=== PATIENT | male | born 1950 | race Caucasian/White ===

== ENCOUNTER 2017-03-30 11:49 | Inpatient (IN) | payer MEDICARE, OTHER ==
--- NOTE | 2017-03-30 12:22 | ED.PDOC ---
History of Present Illness - General Chief Complaint: Neuro Symptoms/Deficits Stated Complaint: altered mental status Time Seen by Provider: 03/30/17 12:22 Source: patient Exam Limitations: no limitations - History of Present Illness Initial Comments: Bc Reyna 66 y/o male brought by family today they stated that felt nauseated the last 3 days and woke up early thia sm at 0500h telling that he was dying screaming but calmed down went back to bed and woke up about 1100 h then was telling that he saw grandson and seeing red all over ,had also vomited several times yesterday and had diarrhea today.No LOC not eating well the last few days . stated they sleep in separate bedroo. Timing/Duration: 4-6 hours, other Severity: moderate Episode Description: see hpi Improving Factors: nothing Worsening Factors: nothing Associated Symptoms: confusion, other - hallucination Allergies/Adverse Reactions: Allergies NO KNOWN ALLERGY Allergy (Verified 03/30/17 12:11) Home Medications: Ambulatory Orders Alprazolam [Xanax] 2 mg PO BEDTIME 03/30/17 Citalopram Hydrobromide 20 mg PO DAILY 03/30/17 Cyclobenzaprine HCl [Flexeril] 10 mg PO Q12H PRN 03/30/17 HYDROcodone 10MG/APAP 325MG [[place] 10/325] 1 tab PO Q6H PRN 03/30/17 Pantoprazole Sodium [Protonix] 20 mg PO DAILY 03/30/17 Simvastatin 80 mg PO BEDTIME 03/30/17 Trazodone HCl 150 mg PO BEDTIME 03/30/17 Review of Systems - Review of Systems Constitutional: States: no symptoms reported EENTM: States: no symptoms reported Respiratory: States: no symptoms reported Cardiology: States: no symptoms reported Gastrointestinal/Abdominal: States: no symptoms reported Genitourinary: States: no symptoms reported Musculoskeletal: States: no symptoms reported Skin: States: no symptoms reported Neurological: States: see HPI Past Medical History (General) - Patient Medical History Hx Cardiac Disorders: Yes - ID x2, stent x4 Surgical History: other - back lower,shoulder - Vaccination History Hx Influenza Vaccination: No - Social History Hx Tobacco Use: Yes Hx Alcohol Use: No Hx Substance Use: No Hx Substance Use Treatment: No Hx Depression: No Family Medical History - Family History Mother Family History: Unknown Hx Family Hypertension: Yes - dad/brother Hx Cardiac Disease: Yes - dad/brother Physical Exam - Physical Exam General Appearance: Alert, Comfortable, No apparent distress Eye Exam: bilateral normal ENT Exam: normal ENT inspection, hearing grossly normal, pharynx normal Neck: non-tender, full range of motion, supple, trachea midline, other - carotid bruits right.>left Respiratory: chest non-tender, lungs clear, normal breath sounds, no respiratory distress Cardiovascular/Chest: normal peripheral pulses, regular rate, rhythm, no gallop , no JVD, no murmur Peripheral Pulses: radial,right: 2+, radial,left: 2+ Gastrointestinal/Abdominal: normal bowel sounds, non tender, soft, no organomegaly Back Exam: no CVA tenderness, no vertebral tenderness Extremities Exam: non-tender, normal range of motion, no edema 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, 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 Exam: normal hearing, normal speech, PERRL Coordination/Gait: normal finger to nose Motor/Sensory: no motor deficit, no sensory deficit, no pronator drift Skin Exam: normal color, warm/dry Progress - Progress Progress: 03/30/17 14:17 Laboratory Tests 03/30/17 03/30/17 03/30/17 12:38 12:38 12:38 WBC 8.8 RBC 4.21 L Hgb 13.9 L Hct 39.9 L MCV 94.7 H MCH 33.0 H MCHC 35.0 RDW 12.6 Plt Count 191 MPV 7.3 L Absolute Neuts (auto) 6.20 Absolute Lymphs (auto) 2.00 Absolute Monos (auto) 0.60 Absolute Eos (auto) 0.00 Absolute Basos (auto) 0.00 Neutrophils % 70.4 Lymphocytes % 22.3 Monocytes % 7.1 Eosinophils % 0.1 L Basophils % 0.1 Sodium 127 L Potassium 4.3 Chloride 94 L Carbon Dioxide 25 Anion Gap 12.3 BUN 12 Creatinine 0.76 BUN/Creatinine Ratio 15.8 Random Glucose 131 H Serum Osmolality 256.8 L Calcium 9.9 Magnesium 1.7 L Total Bilirubin 0.8 AST 25 ALT 18 Alkaline Phosphatase 54 Troponin I Serum Total Protein 7.3 Albumin 4.3 Globulin 3.0 Albumin/Globulin Ratio 1.4 Lipase Ethyl Alcohol < 5.40 03/30/17 03/30/17 12:38 12:42 WBC RBC Hgb Hct MCV MCH MCHC RDW Plt Count MPV Absolute Neuts (auto) Absolute Lymphs (auto) Absolute Monos (auto) Absolute Eos (auto) Absolute Basos (auto) Neutrophils % Lymphocytes % Monocytes % Eosinophils % Basophils % Sodium Potassium Chloride Carbon Dioxide Anion Gap BUN Creatinine BUN/Creatinine Ratio Random Glucose Serum Osmolality Calcium Magnesium Total Bilirubin AST ALT Alkaline Phosphatase Troponin I < 0.02 Serum Total Protein Albumin Globulin Albumin/Globulin Ratio Lipase 25 Ethyl Alcohol 03/30/17 16:25 Laboratory Tests 03/30/17 03/30/17 03/30/17 12:22 12:38 12:38 WBC 8.8 RBC 4.21 L Hgb 13.9 L Hct 39.9 L MCV 94.7 H MCH 33.0 H MCHC 35.0 RDW 12.6 Plt Count 191 MPV 7.3 L Absolute Neuts (auto) 6.20 Absolute Lymphs (auto) 2.00 Absolute Monos (auto) 0.60 Absolute Eos (auto) 0.00 Absolute Basos (auto) 0.00 Neutrophils % 70.4 Lymphocytes % 22.3 Monocytes % 7.1 Eosinophils % 0.1 L Basophils % 0.1 Sodium 127 L Potassium 4.3 Chloride 94 L Carbon Dioxide 25 Anion Gap 12.3 BUN 12 Creatinine 0.76 BUN/Creatinine Ratio 15.8 Random Glucose 131 H Serum Osmolality 256.8 L Calcium 9.9 Magnesium 1.7 L Total Bilirubin 0.8 AST 25 ALT 18 Alkaline Phosphatase 54 Troponin I Serum Total Protein 7.3 Albumin 4.3 Globulin 3.0 Albumin/Globulin Ratio 1.4 Lipase Urine Color Urine Appearance Urine pH Ur Specific [place] Urine Protein Urine Glucose (UA) Urine Ketones Urine Blood Urine Nitrite Urine Bilirubin Urine Urobilinogen Ur Leukocyte Esterase Urine RBC Urine WBC Ur Epithelial Cells Urine Bacteria Urine Opiates Screen Positive H Urine Barbiturates Negative Ur Phencyclidine Scrn Negative U Amphetamin/Meth Scrn Negative U Benzodiazepines Scrn Positive H U Cocaine Metab Screen Negative U Cannabinoids Screen Negative Ethyl Alcohol 03/30/17 03/30/17 03/30/17 12:38 12:38 12:42 WBC RBC Hgb Hct MCV MCH MCHC RDW Plt Count MPV Absolute Neuts (auto) Absolute Lymphs (auto) Absolute Monos (auto) Absolute Eos (auto) Absolute Basos (auto) Neutrophils % Lymphocytes % Monocytes % Eosinophils % Basophils % Sodium Potassium Chloride Carbon Dioxide Anion Gap BUN Creatinine BUN/Creatinine Ratio Random Glucose Serum Osmolality Calcium Magnesium Total Bilirubin AST ALT Alkaline Phosphatase Troponin I < 0.02 Serum Total Protein Albumin Globulin Albumin/Globulin Ratio Lipase 25 Urine Color Urine Appearance Urine pH Ur Specific [place] Urine Protein Urine Glucose (UA) Urine Ketones Urine Blood Urine Nitrite Urine Bilirubin Urine Urobilinogen Ur Leukocyte Esterase Urine RBC Urine WBC Ur Epithelial Cells Urine Bacteria Urine Opiates Screen Urine Barbiturates Ur Phencyclidine Scrn U Amphetamin/Meth Scrn U Benzodiazepines Scrn U Cocaine Metab Screen U Cannabinoids Screen Ethyl Alcohol < 5.40 03/30/17 14:08 WBC RBC Hgb Hct MCV MCH MCHC RDW Plt Count MPV Absolute Neuts (auto) Absolute Lymphs (auto) Absolute Monos (auto) Absolute Eos (auto) Absolute Basos (auto) Neutrophils % Lymphocytes % Monocytes % Eosinophils % Basophils % Sodium Potassium Chloride Carbon Dioxide Anion Gap BUN Creatinine BUN/Creatinine Ratio Random Glucose Serum Osmolality Calcium Magnesium Total Bilirubin AST ALT Alkaline Phosphatase Troponin I Serum Total Protein Albumin Globulin Albumin/Globulin Ratio Lipase Urine Color Yellow Urine Appearance Clear Urine pH 6.0 Ur Specific [place] 1.025 Urine Protein 30 Urine Glucose (UA) Negative Urine Ketones Trace Urine Blood Moderate H Urine Nitrite Negative Urine Bilirubin Small H Urine Urobilinogen 1.0 Ur Leukocyte Esterase Negative Urine RBC 3-5 H Urine WBC 0 Ur Epithelial Cells 1-3 Urine Bacteria 0 Urine Opiates Screen Urine Barbiturates Ur Phencyclidine Scrn U Amphetamin/Meth Scrn U Benzodiazepines Scrn U Cocaine Metab Screen U Cannabinoids Screen Ethyl Alcohol - Results/Orders Results/Orders: Vital Signs - 8 hr 03/30/17 12:08 Temperature 98.6 F Pulse Rate [ 78 pulse ox] Respiratory 20 Rate Blood Pressure 142/65 [Left Arm] O2 Sat by Pulse 97 Oximetry - EKG/XRAY/CT EKG: Sinus Comments: heart rate-74;occ pvc XRAY: chest - no chest abnormalities;carotid and aortic calcification Departure - Departure Clinical Impression: Peripheral artery disease Altered mental status, unspecified Qualifiers: Altered mental status type: unspecified Qualified Code(s): R41.82 - Altered mental status, unspecified Time of Disposition: 16:27 Disposition: Admit Patient Condition: Fair Departure Forms: Patient Portal Self Enrollment Referrals: Malachi Helm MD [Primary Care Provider] - 1-2 Weeks Home Medications: Ambulatory Orders Alprazolam [Xanax] 2 mg PO BEDTIME 03/30/17 Citalopram Hydrobromide 20 mg PO DAILY 03/30/17 Cyclobenzaprine HCl [Flexeril] 10 mg PO Q12H PRN 03/30/17 HYDROcodone 10MG/APAP 325MG [[place] 10325] 1 tab PO Q6H PRN 03/30/17 Pantoprazole Sodium [Protonix] 20 mg PO DAILY 03/30/17 Simvastatin 80 mg PO BEDTIME 03/30/17 Trazodone HCl 150 mg PO BEDTIME 03/30/17 Decision To Admit - Decistion To Admit Decision to Admit Reason: Admit from ER Decision to Admit Date: 03/30/17 Decision to Admit Time: 16:27 - D/W Sangeeta Warren-JILL/Hospitalist
--- NOTE | 2017-03-30 12:33 | CT ---
PROCEDURE: Head HISTORY: altered mental status, garbled speech Indication: Same as above Comparison: None Technique: CT of the head was done without intravenous contrast was done in the orthogonal planes. This exam was performed according to our departmental dose-optimization program, which includes automated exposure control, adjustment of the mA and/or KV according to the patient's size and/or use of iterative reconstruction technique. FINDINGS: There is no intracranial hemorrhage, midline shift mass effect or acute focal infarct. There is prominence of the sylvian fissures and the cortical sulci reflecting age related volume loss. There is periventricular and deep white matter low attenuation, most likely related to small vessel white matter ischemic disease. Intracranial vascular calcifications are seen. If clinical concern exists regarding an acute ischemic/vascular pathology being responsible for patient's symptomatology, an MRI of the brain is more sensitive than the current study, in ruling out such a possibility. There is good cedeño/white matter differentiation. The ventricular system is normal. The mastoid air cells show changes of mild left-sided mastoiditis . The paranasal sinuses are unremarkable . There is no visualization of acute fractures involving the calvarium or the skull base. IMPRESSION: There is no acute intracranial abnormality. Age related and chronic involutional changes are seen. Electronically signed by: Vitaliy Gonzalez MD 03/30/2017 12:31 PM CDT Workstation: [facility]
[2017-03-30] MEDS ORDERED: LACTATED RINGERS 1,000 ML IVS ONE (12:40)
--- NOTE | 2017-03-30 13:01 | RAD ---
EXAM DESCRIPTION: Chest,1 View CLINICAL HISTORY: 66 years, Male, ams COMPARISON: None. FINDINGS: A single frontal chest radiograph was performed. The lungs are well expanded and clear. The costophrenic sulci are sharp. The cardiac silhouette, hilar regions, trachea, soft tissues and bony structures are unremarkable. Vascular calcifications are extensive in the neck. The aortic arch is calcified. IMPRESSION: No acute cardiopulmonary disease. Extensive aortic and likely carotid arterial calcification. Electronically signed by: Carolee Chang MD 03/30/2017 1:00 PM CDT
[2017-03-30] MEDS ORDERED: MAGNESIUM SULFATE PREMIX 2GM 2 GM in PREMIX BAG 1 BAG IVPB ONE (14:05)
[2017-03-30] MEDS ORDERED: MAGNESIUM SULFATE PREMIX 2GM 50 ML IVPB ONE (14:55)
--- NOTE | 2017-03-30 16:39 | HP ---
SUPERVISING PHYSICIAN: Edilberto Langford MD CHIEF COMPLAINT: Altered mental status. HISTORY OF PRESENT ILLNESS: This is a 66-year-old male patient who was brought into the Emergency Room with complaints of nausea and vomiting as well as several episodes of diarrhea over the last three days. This morning at 5 AM, he told his that he was dying and then calmed down later, but she said he was "talking out of his head." He went back to bed and then woke up about 11 and was having some visual hallucinations. He again vomited and had another episode of diarrhea. He has not eaten well or drank many fluids in the last few days, so they brought him to the Emergency Room and in the Emergency Room, his head CT per radiologic interpretation showed no acute intracranial abnormality with age-related and chronic senescent changes seen. His chest x- ray per radiologic interpretation showed no acute cardiopulmonary disease with extensive aortic and likely carotid arterial calcifications. His lab studies showed WBC of 8.8 with hemoglobin 13.9 and hematocrit 39.9. His sodium was 127 with a potassium 4.3, chloride 94, carbon dioxide 25, BUN 12, creatinine 0.76, glucose 131, serum osmolality 256.8, magnesium 1.7. Ammonia was less than 6 and his troponin was less than 0.02. TSH 0.24. Liver enzymes within normal limits. Urine showed moderate urine blood with a small amount of bilirubin and 3 to 5 urine RBCs. Urine drug screen was positive for opiates and benzodiazepines, but he has those as scheduled home medications. He had no slurred speech or weakness of any of his extremities. I was called for hospital admission. PAST MEDICAL HISTORY: 1. Coronary artery disease. 2. Gastroesophageal reflux disease. 3. Depression. 4. Chronic back pain. 5. Arthritis with bilateral hip pain. 6. Hyperlipidemia. PAST SURGICAL HISTORY: 1. Back surgery. 2. Right rotator cuff repair. 3. Stents times three. OUTPATIENT MEDICATIONS: Per the EMR and awaiting verification. ALLERGIES: NO KNOWN DRUG ALLERGIES. SOCIAL HISTORY: He is . He smoked about 1/2 pack of cigarettes per day and has for almost 60 years. He drinks ETOH socially and denies any illicit drug use. REVIEW OF SYSTEMS: GENERAL: Negative for fever, fatigue or weight changes. HEENT: Negative for sinus symptoms, ear pain, vision changes or sore throat. RESPIRATORY: Negative for wheezing, coughing or shortness of breath. CARDIAC: Negative for chest pain, palpitations or tachycardia. GASTROINTESTINAL: As per history of present illness. GENITOURINARY: Negative for hematuria, dysuria or nocturia. NEUROLOGIC: As per history of present illness, but denies headaches or seizures. MUSCULOSKELETAL: Positive for back pain and arthritis pain. PHYSICAL EXAMINATION: VITAL SIGNS: Temperature 97.1. Pulse 59. Blood pressure 140/68. Respiratory rate 20. O2 saturation 97% on room air. GENERAL: This is a 66-year-old male patient who is sitting in his hospital bed. He is in no acute distress. HEENT: Normocephalic, atraumatic. Pupils are equal and reactive. Oropharynx clear. NECK: Supple without mass. RESPIRATORY: Essentially clear to auscultation bilaterally, slightly diminished at the bases. CHEST: There is equal rise and fall of the chest with inspiration and expiration. CARDIOVASCULAR: Regular rate and rhythm. ABDOMEN: Soft, nondistended. It is mildly diffusely tender. Bowel sounds are positive. EXTREMITIES: No cyanosis, clubbing or edema. NEUROLOGIC: Awake, alert to person and place only. He has a difficult time answering some simple questions although he does re-orient fairly easily. LABORATORY: Labs and films are as per the history of present illness. ASSESSMENT: 1. Hyponatremia. 2. Altered mental status, may be secondary to #1. 3. Nausea, vomiting, diarrhea that may have contributed to his hyponatremia, but has had no episode of it since admission. 4. Coronary artery disease with a history of stents times three. 5. Gastroesophageal reflux disease. 6. Depression on Celexa and trazodone. 7. Chronic back pain on [place] and Flexeril. 8. Hyperlipidemia. PLAN: We will admit the patient to the hospital. He has been placed on fluid restrictions as well as he is getting normal saline. He is scheduled to have a carotid ultrasound in the morning. His magnesium was low, so he received a dose of magnesium in the Emergency Room, so I will recheck his magnesium in the morning. I have also given him a nicotine patch and given him Lovenox for DVT prophylaxis as well as Protonix for ulcer prophylaxis. We will check his lab in the morning. We will continue to monitor the patient closely and follow as needed. Dr. Langford is the collaborating physician and available for consultation. #[id number] [facility]
[2017-03-30] MEDS ORDERED: ACETAMINOPHEN 325 MG TAB PO PRN (16:50)
[2017-03-30] MEDS ORDERED: IV SET AND CAP CHANGE INJ INJ SCH (17:00)
[2017-03-30] MEDS: SODIUM CHLORIDE 0.9% (FLUSH) 10 ML SYG IV PRN ×2 (18:27→21:10)
[2017-03-30] MEDS: SODIUM CHLORIDE 0.9% 1000ML 1,000 ML IVS PRN (18:27)
[2017-03-30] MEDS ORDERED: SIMVASTATIN 20 MG TAB ONE (20:22)
[2017-03-30] MEDS ORDERED: traZODone HCL 50 MG TAB ONE (20:23)
[2017-03-30] MEDS ORDERED: traZODone HCL 100 MG TAB PO ONE (20:23)
[2017-03-30] MEDS ORDERED: PANTOPRAZOLE SODIUM IV 40 MG VIAL IV SCH (20:30)
[2017-03-30] MEDS: NICOTINE PATCH 21 MG TD SCH (20:39)
[2017-03-30] MEDS: HYDROcodone 10MG/APAP 325MG 1 EA TAB PO PRN (20:40)
[2017-03-30] MEDS: ALPRAZolam 0.5 MG TAB PO PRN (20:40)
[2017-03-30] MEDS ORDERED: NON-FORMULARY MEDICATION 1 EA MIS (Trazodone Hcl [Trazodone Hcl] 150 MG) PO SCH (21:00)
[2017-03-30] MEDS ORDERED: NON-FORMULARY MEDICATION 1 EA MIS (Simvastatin [Simvastatin] 80 MG) PO SCH (21:00)
[2017-03-30] MEDS: ENOXAPARIN SODIUM 40 MG/0.4 ML SYG SUBCU SCH (21:10)
[2017-03-31] MEDS: SODIUM CHLORIDE 0.9% 1000ML 1,000 ML IVS PRN (03:22)
[2017-03-31] MEDS: CITALOPRAM HBR 20 MG TAB PO SCH (08:00)
--- NOTE | 2017-03-31 08:54 | US ---
EXAM DESCRIPTION: Carotid Duplex CLINICAL HISTORY: AMS COMPARISON: None Available. TECHNIQUE: Carotid Doppler ultrasound FINDINGS: Bilateral carotid Doppler demonstrates significant atherosclerotic plaque formation with hard and soft plaque both noted. The dominant finding is hard plaque formation. On the right visual measurements of the proximal ICA stenosis indicate 77% area stenosis. Analysis of duplex waveforms and flow velocities indicate no velocity accelerations. Evaluation of the left side visually shows a 64% area stenosis of the left proximal ICA. Again duplex waveforms and flow velocities indicate no Doppler evidence of hemodynamically significant stenosis. Right vertebral is patent with antegrade flow. Left vertebral not visualized. IMPRESSION: Atherosclerosis is present with no hemodynamically significant stenosis by Doppler criteria. However, visual measurement of the stenoses indicates 77% right 64% left area stenosis proximal ICA Electronically signed by: Allan Benitez MD 03/31/2017 8:53 AM CDT
[2017-03-31] MEDS: SODIUM CHLORIDE 0.9% (FLUSH) 10 ML SYG IV SCH ×2 (11:30→20:22)
--- NOTE | 2017-03-31 11:35 | PN ---
SUPERVISING PHYSICIAN: Brady Castro MD DATE: 03/31/17 SUBJECTIVE: The patient is sitting in his bed. His is at his bedside. He felt much better today and his says he is not confused at all. He denies any shortness of breath, nausea, vomiting, diarrhea or constipation. OBJECTIVE: VITAL SIGNS: Afebrile. Heart rate 63. Blood pressure 122/72. Respiratory rate 17. O2 saturation 96%. LUNGS: Clear to auscultation bilaterally. CARDIAC: Regular rate and rhythm. ABDOMEN: Soft, nondistended, nontender. Bowel sounds are positive. EXTREMITIES: No cyanosis, clubbing or edema. NEUROLOGIC: Awake, alert and oriented times three. LABORATORY: WBC 6.9, hemoglobin 12.3, hematocrit 35.5. Sodium still slightly low at 133, potassium 4, chloride 100, carbon dioxide 26, BUN 15, creatinine 0.73. Serum osmolality 267.6. Carotid ultrasound per radiologic interpretation shows atherosclerosis present with no hemodynamically significant stenosis by Doppler criteria. However, visual measurement of the stenosis indicates 77% of the right and 64% of the left area stenosis proximal internal carotid artery. All other labs and films have been reviewed via the EMR. ASSESSMENT: 1. Hyponatremia. 2. Altered mental status, may be secondary to #1. 3. Nausea, vomiting, diarrhea that may have contributed to his hyponatremia, but has had no episode of it since admission. 4. Coronary artery disease with a history of stents times three. 5. Gastroesophageal reflux disease. 6. Depression on Celexa and trazodone. 7. Chronic back pain on [place] and Flexeril. 8. Hyperlipidemia. 9. Mild carotid stenosis as per carotid ultrasound. PLAN: We will continue present supportive care. I have discontinued his IV fluids. I have strongly encouraged him to continue with his fluid restrictions. We will need to make sure his carotid studies get to Dr. Helm so they can followup on that as needed. I have repeated his lab in the morning and hopefully once he is off the IV fluids and continues with his fluid restrictions, his sodium will normalize and he can be discharged in the morning. Until then, we will continue to monitor the patient closely and follow as needed. Dr. Castro is the collaborating physician and available for consultation. #[id number] [facility]
[2017-03-31] MEDS: PANTOPRAZOLE SODIUM TAB 40 MG PO SCH (12:29)
[2017-03-31] MEDS: HYDROcodone 10MG/APAP 325MG 1 EA TAB PO PRN (12:33)
[2017-03-31] MEDS ORDERED: traZODone HCL 50 MG TAB ONE (19:37)
[2017-03-31] MEDS ORDERED: SIMVASTATIN 20 MG TAB ONE (19:37)
[2017-03-31] MEDS ORDERED: traZODone HCL 100 MG TAB PO ONE ×2 (19:38→19:40)
[2017-03-31] MEDS: NICOTINE PATCH 21 MG TD SCH (20:21)
[2017-03-31] MEDS: ENOXAPARIN SODIUM 40 MG/0.4 ML SYG SUBCU SCH (20:21)
[2017-03-31] MEDS: ALPRAZolam 0.5 MG TAB PO PRN (20:30)
[2017-03-31] MEDS ORDERED: SIMVASTATIN 20 MG TAB PO SCH (21:00)
[2017-03-31] MEDS ORDERED: traZODone HCL 100 MG TAB PO SCH (21:00)
[2017-04-01] MEDS: PANTOPRAZOLE SODIUM TAB 40 MG PO SCH (06:13)
[2017-04-01] MEDS: SODIUM CHLORIDE 0.9% (FLUSH) 10 ML SYG IV SCH (09:35)
[2017-04-01] MEDS: CITALOPRAM HBR 20 MG TAB PO SCH (09:35)
[2017-04-01] MEDS: HYDROcodone 10MG/APAP 325MG 1 EA TAB PO PRN (09:35)
--- NOTE | 2017-04-01 12:40 | MRI ---
EXAM DESCRIPTION: Brain w/o Contrast CLINICAL HISTORY: mental status changes. Speech disturbance. Altered mental status. COMPARISON: CT head 03/30/2017 TECHNIQUE: Non contrast MRI of the brain is performed according to our usual protocol including multiplanar multi sequence technique. FINDINGS: No hemorrhage, mass effect, diffusion restriction, or acute infarction is present. There is normal configuration of the ventricles and sulci. Mild generalized volume loss is present. Moderate T2/FLAIR hyperintensities in the supratentorial white matter. No abnormal extra-axial fluid collections are present. Normal flow voids are present. The calvarium is intact. Trace left mastoid effusion. The visualized paranasal sinuses are clear. IMPRESSION: 1. No acute intracranial abnormality. 2. Moderate senescent changes. 3. Trace left mastoid fluid. Electronically signed by: Isaac Mai MD 04/01/2017 12:38 PM CDT
--- NOTE | 2017-04-01 15:12 | DS ---
SUPERVISING PHYSICIAN: Brady Castro MD DISCHARGE DIAGNOSIS: 1. Hyponatremia. 2. Altered mental status, may be secondary to #1. 3. Nausea, vomiting, diarrhea that may have contributed to his hyponatremia, but has had no episode of it since admission. 4. Coronary artery disease with a history of stents times three. 5. Gastroesophageal reflux disease. 6. Depression on Celexa and trazodone. 7. Chronic back pain on [place] and Flexeril. 8. Hyperlipidemia. 9. Mild carotid stenosis as per carotid ultrasound. 10. History of chronic tobacco abuse. HISTORY OF PRESENT ILLNESS: This is a 66-year-old male patient who was brought into the Emergency Room with complaints of nausea and vomiting as well as several episodes of diarrhea over 3 days prior to admission. At 5 AM on morning of admission, he told his that he was dying and then calmed down later, but she said he was "talking out of his head." He went back to bed and then woke up about 11 and was having some visual hallucinations. He again vomited and had another episode of diarrhea. He has not eaten well or drank many fluids in the last few days, so they brought him to the Emergency Room and in the Emergency Room, his head CT per radiologic interpretation showed no acute intracranial abnormality with age-related and chronic changes seen. His chest x-ray per radiologic interpretation showed no acute cardiopulmonary disease with extensive aortic and likely carotid arterial calcifications. His lab studies showed WBC of 8.8 with hemoglobin 13.9 and hematocrit 39.9. His sodium was 127 with a potassium 4.3, chloride 94, carbon dioxide 25, BUN 12, creatinine 0.76, glucose 131, serum osmolality 256.8, magnesium 1.7. Ammonia was less than 6 and his troponin was less than 0.02. TSH 0.24. Liver enzymes within normal limits. Urine showed moderate urine blood with a small amount of bilirubin and 3 to 5 urine RBCs. Urine drug screen was positive for opiates and benzodiazepines, but he has those as scheduled home medications. He had no slurred speech or weakness of any of his extremities. I was called for hospital admission. HOSPITAL COURSE: The patient's hyponatremia improved to 133. Mental status improved. Occasionally, he did have some issues with answering simple questions , and, according to his family, it was a change from his previous baseline, but he was alert and oriented times three. He had a carotid ultrasound done and per radiologic interpretation showed that he had atherosclerosis present with no significant stenosis by Doppler criteria. However, visual measurements of the stenosis indicate 77% right and 64% left area stenosis, proximal internal carotid artery. His neurologic symptoms continued to improved this morning, but the patient's family was very concerned that his mental status was much different than prior to his admission. An MRI of the brain was ordered and per radiologic interpretation showed: 1. No acute intracranial abnormality. 2. Moderate senescent changes. 3. Trace left mastoid fluid. I spoke with his primary care physician, Dr. Helm's office, and they agreed to see him in two days to do followup. I also faxed all of his information to his dramatic director, Dr. Maldonado, in [place]. His vital signs have been stable. He can be discharged home today in stable condition. DISCHARGE PLAN: The patient will be discharged home today in stable condition. He had received the discs for his radiology exams here in the hospital. He is to resume his previous diet as well as to increase his activity as tolerated. He has an appointment with Dr. Helm on 04/03/17 at 3 PM[address] I spoke with Dr. Maldonado's office and they received his carotid ultrasound results and they will call to schedule an appointment soon. I let the family know that Dr. Maldonado's office would e calling him. I have also faxed the carotid and MRI report to Dr. Helm and Dr. Maldonado. He is to return to the hospital or call Dr. Helm's office for any problems or new onset of symptoms. DISCHARGE MEDICATIONS: 1. Trazodone. 2. Hydrocodone. 3. Simvastatin. 4. Alprazolam. 5. Flexeril. 6. Citalopram. 7. Protonix. 8. Lisinopril. 9. Lyrica. 10. Aspirin [address] Castro is the collaborating physician and available for consultation. #[id number] [facility]
[2017-04-01 15:17] VITALS: BP 168/69; TEMP 97.1; O2SAT 96
[2017-04-01] MEDS ORDERED: MAGNESIUM CHLORIDE 64 MG TAB PO ONE (15:27)
[2017-04-01] MEDS ORDERED: INFLUENZA VIRUS VACC (ADULT) 0.5 ML SYG IM ONE (16:02)
== END 2017-04-01 16:48 | disposition home or self-care (01) | DRG 641 ==
LOC: ER 11:49 → MS 16:38 → OBSVTOIN 20:35
PROVIDERS: ADMIT Nurse Practitioner Acute Care; ATTEND Nurse Practitioner Acute Care
DX: E87.1 Hypo-osmolality and hyponatremia (principal); I25.10 Atherosclerotic heart disease of native coronary artery without angina pectoris; K21.9 Gastro-esophageal reflux disease without esophagitis; G89.29 Other chronic pain; M54.9 Dorsalgia, unspecified; E78.5 Hyperlipidemia, unspecified; I65.23 Occlusion and stenosis of bilateral carotid arteries; F32.9 Major depressive disorder, single episode, unspecified; M16.0 Bilateral primary osteoarthritis of hip; F17.210 Nicotine dependence, cigarettes, uncomplicated; Z95.5 Presence of coronary angioplasty implant and graft

== ENCOUNTER → 2017-08-12 | Outpatient (CLI) | payer OTHER ==
--- NOTE | 2017-08-12 17:50 | CT ---
EXAM DESCRIPTION: CTA Neck: Computed Tomography. CLINICAL HISTORY: CAROTID STENOSIS COMPARISON: Carotid duplex ultrasound carotid and vertebral vessels 03/31/2017. TECHNIQUE: Spiral, axial 2.5 mm scans through the neck soft tissues after bolus infusion of IV contrast. 2.0 mm coronal and sagittal reconstructions. 3D volume rendering images 0.6 mm craniocaudal axis . Percentage of stenosis or no stenosis recorded will be based upon NASCET criteria. Total Exam DLP: 374.30 mGy-cm. This exam was performed according to our departmental CT dose-optimization program which includes automated exposure control, adjustment of the mA and/or kV according to patient size and/or use of iterative reconstruction technique; to reduce radiation dose to as low as reasonably achievable (ALARA). FINDINGS: Atherosclerotic calcifications in the aorta and the ostia of the common carotid artery and left subclavian artery. Minimal calcification mid common carotid. Atherosclerotic calcification of the common carotid bulb, extending along the the proximal left ICA with intimal wall thickening and soft plaque. Diameter stenosis of the proximal ICA is 73%. Diameter stenosis 1 cm distally is 38%. No significant calcification of the proximal ECA. Calcification of the ostia of the right common carotid artery and the origin of the right innominate artery. Calcification of the posterior right common carotid bulb and the proximal right ICA. Diameter stenosis is approximately 24%. No intimal wall thickening or soft plaque. Minimal calcification of the proximal ECA. The cervical segments and skull base segments of the ICAs are unremarkable, but just before the carotid siphon, there is approximately 35% diameter stenosis of the transverse segment of the left ICA and approximately 50% diameter stenosis of the transverse segment of the right ICA. Bilateral calcification in the carotid siphons. Minimal calcification of the supraclinoid segments. Bilateral carotids bifurcate to form the THAIS and MCA vessels which appear to be symmetric bilaterally. Bilateral posterior communicating arteries originating from the intracranial ICAs. No intracranial aneurysms stenoses mass effect or vasculitis. origin of the left vertebral artery from the thoracic aorta just distal to the origin of the left subclavian. Typical origin of the right vertebral artery from the right subclavian artery with atherosclerotic calcification. Left vertebral artery is slightly larger in diameter. Minimal calcification of the right vertebral artery at the origin of the right PICA. Unremarkable cerebellar artery origins from the basilar artery which is tortuous. Bilateral posterior cerebral arteries supplied directly from the bilateral intracranial ICAs via posterior communicating arteries. No aneurysm, stenosis, mass effect, or vasculitis. No significant cervical spondylosis, and no disc space narrowing, no abnormal alignment of the cervical spine, no facet arthrosis or canal or foraminal stenosis. Minimal posterior bulge of the C3-4 disc. Uniform enhancement of the thyroid gland. No soft tissue masses in the region of the thyroid gland. Emphysematous changes in the included lungs. Minimal dependent atelectasis in the posterior upper lobes bilaterally more on the right. Unremarkable lymph nodes in the paracervical space, bilateral carotid space, and bilateral parapharyngeal space. No effacement of the included nasopharynx or oropharynx. Unremarkable appearance of the hypopharynx and larynx. IMPRESSION: 1. Significant diameter stenosis of the proximal left ICA, greater than 70%. This is similar to findings on the prior duplex ultrasound study. 2. 30-50% diameter stenosis of the transverse segments of the ICAs in the skull base. 3. 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 The right vertebral artery is slightly dominant. 4. Bilateral ICAs directly supply the bilateral posterior cerebral arteries via posterior communicating arteries. Basilar artery bifurcates to form the superior cerebellar arteries. Electronically signed by: Ender Lawrence MD 08/12/2017 5:48 PM [employer]
== END ==
LOC: CT 08:52
PROVIDERS: ATTEND General Practice
DX: I65.23 Occlusion and stenosis of bilateral carotid arteries (principal)

== ENCOUNTER → 2019-02-26 | Outpatient (CLI) | payer OTHER ==
--- NOTE | 2019-02-26 15:43 | CT ---
Procedure: CT LUNG SCREENING Exam Date: 02/26/2019. Ordering Provider: Shaniqua Oneil Clinical Indication: HX OF NICOTINE DEPENDENCE smoking cessation 4 years. 45 pack years. This patient meets eligibility criteria for low-dose CT lung cancer screening. Comparison: None. Technique: Using a multislice scanner, sequential helical axial imaging was obtained in the thorax, 2.5 mm thickness, 2.5 mm separation, from the level of the thoracic inlet through the lung bases without IV contrast. A low dose protocol was utilized for BMI less than 30: BMI: 26.3. CTDI: 1.76 mGy. 120. kVp. 45 mA. DLP 69.13 mGy-centimeters. 2D sagittal and coronal reconstructed images, 6.0 mm thickness, were obtained. This exam was performed according to our departmental dose optimization program which includes use of automated exposure control, adjustment of the mA and/or kV according to patient size and/or use of iterative reconstruction technique. Nodule measurements under 10 mm are given as mean value of 3 axes diameters. FINDINGS: Lungs and large airways: Minimally dilated airspaces bilateral upper lobes. 5 mm calcified nodule lateral posterior recess left lower lobe. Bilateral minimal perihilar peribronchial wall thickening. No abnormal nodules, no masses, and no focal infiltrates. Pleura and space: Bilateral symmetric thickening in the bases with no effusion or pneumothorax. Mediastinum and farrah: evaluation limited by low dose technique and lack of IV contrast. Unremarkable. Heart and great vessels: Calcifications and stents in the coronary arteries. Atherosclerotic calcifications included brachiocephalic vessels and thoracic arch and descending thoracic aorta. Minimal thickening of the pericardium. Chest wall, lower neck, axillae: Evaluation also limited by same factors as described above. Negative. Upper abdomen: Evaluation limited by low-dose technique. No fluid or free air in the included peritoneal space. Atherosclerotic calcifications in the kidney, aorta, celiac axis and vessels and proximal SMA. Osseous structures: Evaluation limited by low dose MIP technique. Minimal narrowing of the left glenohumeral joint. IMPRESSION: Minimally dilated airspaces upper lobes. 5 mm calcified nodule right lung base. No abnormal nodules, no masses, no focal infiltrates. Minimal pleural thickening. [facility] Best Practice recommendations: Please see below for Lung RADS category and FOLLOW-UP.* *Lung RADS category Category 1 - No nodule or definitely benign nodules (probability of malignancy less than 1%). Follow-up: Continue annual screening with Low Dose Chest CT in 12 months. Electronically signed by: Ender Lawrence MD 02/26/2019 3:41 PM CDT
== END ==
LOC: CT 10:30
PROVIDERS: ATTEND Nurse Practitioner Family
DX: Z87.891 Personal history of nicotine dependence (principal); R91.1 Solitary pulmonary nodule

== ENCOUNTER 2019-09-01 10:42 | Emergency (ER) | payer MEDICARE, OTHER ==
--- NOTE | 2019-09-01 11:26 | ED.PDOC ---
History of Present Illness - General Chief Complaint: General Time Seen by Provider: 09/01/19 10:48 Source: patient Exam Limitations: no limitations - History of Present Illness Initial Comments: 69-year-old male presents to the emergency department after being told to come in by the local urgent care due to abnormal lab results. He was told that his sodium was low and his potassium was high and that he needed to come to the ER for fluids. He reports that he went to the urgent care 2 days ago because he was having left flank pain and bruising after an episode of coughing and they did lab work and a CT which does show that he had a large hematoma in his abdominal wall and the lab work came back abnormal and today he was called and notified to come in. He reports he has had continued cough but denies any significant shortness of breath. He has felt himself wheezing but does not currently have any albuterol treatments that he has been doing at home. He had quit smoking however he had started again and reports that he quit again on 08/27/2019. Allergies/Adverse Reactions: Allergies NO KNOWN ALLERGY Allergy (Verified 03/30/17 12:11) Home Medications: Ambulatory Orders Cyclobenzaprine HCl [Flexeril] 10 mg PO Q12H PRN 03/30/17 Pantoprazole Sodium [Protonix] 20 mg PO DAILY 03/30/17 Simvastatin 80 mg PO BEDTIME 03/30/17 Lisinopril 10 mg PO DAILY 04/01/17 Pregabalin [Lyrica] 100 mg PO DAILY 04/01/17 Albuterol Sulfate Nebs [Proventil Nebs] 2.5 mg INH Q4H PRN #25 vial 09/01/19 Aspirin [Aspirin Low Strength] 81 mg PO DAILY 09/01/19 Benzonatate Perles [Tessalon Perles] 100 mg PO Q8H PRN #21 cap 09/01/19 Prednisone 50 mg PO DAILY #5 tab 09/01/19 Respiratory Therapy Supplies [Nebulizer Air Tube/Plugs] 1 mis XX Q4H PRN #1 mis 09/01/19 Review of Systems - Review of Systems Constitutional: Denies: chills, fever EENTM: Denies: nose congestion, throat pain Respiratory: States: cough. Denies: short of breath Cardiology: Denies: chest pain, palpitations Gastrointestinal/Abdominal: States: abdominal pain - abd wall. Denies: nausea, vomiting Genitourinary: Denies: dysuria, frequency, hematuria Musculoskeletal: Denies: back pain, muscle pain Skin: States: other - bruising L abd wall. Denies: lesions, rash Neurological: Denies: headache, numbness, weakness Past Medical History (General) - Patient Medical History Hx Seizures: No Hx Stroke: No Hx of COPD: Yes Hx Cardiac Disorders: Yes - [place] x2, stent x4 Hx Congestive Heart Failure: No Hx Pacemaker: No Hx Hypertension: Yes Hx Diabetes: Yes Hx MRSA: No - Vaccination History Hx Influenza Vaccination: No - Social History Hx Tobacco Use: Yes Hx Alcohol Use: No Hx Substance Use: No Hx Substance Use Treatment: No Hx Depression: No Family Medical History - Family History Mother Family History: Unknown Hx Family Hypertension: Yes - dad/brother Hx Cardiac Disease: Yes - dad/brother Physical Exam - Physical Exam General Appearance: Alert, No apparent distress, Well Developed, Well Nourished Eye Exam: bilateral normal Ears, Nose, Throat: normal ENT inspection, normal pharynx Neck: full range of motion, normal inspection Respiratory: chest non-tender, no respiratory distress, no accessory muscle use, wheezing - end expiratory Cardiovascular/Chest: normal peripheral pulses, regular rate, rhythm, no edema Peripheral Pulses: radial,right: 2+, radial,left: 2+ Gastrointestinal/Abdominal: soft, no organomegaly, tenderness - L Upper quadrant with ecchymosis Back Exam: normal inspection, no vertebral tenderness Extremity: normal range of motion, normal inspection Neurologic: no motor/sensory deficits, alert, normal mood/affect, oriented x 3 Skin Exam: warm/dry, rash - ecchymosis L abd wall Comments: Vital Signs - 24 hr 09/01/19 11:22 Temperature 98.1 F Pulse Rate [ 73 left brachial] Respiratory 18 Rate Blood Pressure 127/62 [left brachial] O2 Sat by Pulse 97 Oximetry Progress - Progress Progress: 09/01/19 12:10 Patient recheck: Air movement is significantly improved following breathing treatment. Discuss lab results so far and that the patient's sodium is slightly low but does not meet criteria for admission. We discussed plan for discharge home with instructions on how to increase sodium in his diet and prescriptions for albuterol nebulizer treatments to use every 4 hours as needed to help with bronchitis. 09/01/19 12:29 Patient updated on chest x-ray findings and again we discussed plan for discharge home with albuterol nebulizer solution and a prescription for a nebulizer. He was instructed to use these every 4 hours as needed. He was given dietary instructions on how to increase his sodium intake and was instructed to follow-up with his primary care provider in 2 to 3 days for reevaluation. He was to return to the emergency department immediately for any significant worsening of symptoms or other concerns. The patient and at the bedside have voiced understanding and agree with the treatment plan. - Results/Orders Results/Orders: 09/01/19 11:19 Telemetry ONCE Laboratory Results - last 24 hr 09/01/19 09/01/19 09/01/19 11:20 11:20 11:20 WBC 6.2 RBC 3.08 L Hgb 10.1 L Hct 28.8 L MCV 93.5 MCH 32.8 H MCHC 35.1 RDW 12.7 Plt Count 249 MPV 7.5 Absolute Neuts (auto) 3.50 Absolute Lymphs (auto) 2.00 Absolute Monos (auto) 0.50 Absolute Eos (auto) 0.10 Absolute Basos (auto) 0.00 Neutrophils % 57.2 Lymphocytes % 31.7 Monocytes % 8.2 Eosinophils % 2.3 Basophils % 0.6 PT 9.6 INR < 1.00 Sodium 127 L Potassium 4.1 Chloride 93 L Carbon Dioxide 26 Anion Gap 12.1 BUN 8 Creatinine 0.89 BUN/Creatinine Ratio 9.0 L Random Glucose 140 H D Serum Osmolality 255.9 L Calcium 9.7 Total Bilirubin 1.0 AST 31 ALT 15 Alkaline Phosphatase 82 Serum Total Protein 7.1 Albumin 4.2 Globulin 2.9 Albumin/Globulin Ratio 1.4 CXR: IMPRESSION: Right lower thoracic pleural or extrapleural thickening. Electronically signed by: Anjel Ocasio MD 09/01/2019 12:24 PM CDT Departure - Departure Clinical Impression: Bronchitis, Hyponatremia Hematoma of abdominal wall Qualifiers: Encounter type: subsequent encounter Qualified Code(s): S30.1XXD - Contusion of abdominal wall, subsequent encounter Time of Disposition: 12:30 Disposition: Discharge to Home or Self Care Condition: Fair Departure Forms: ED Discharge - Pt. Copy, Patient Portal Self Enrollment Instructions: Hyponatremia, Acute Bronchitis Referrals: Shaniqua Oneil NP [Primary Care Provider] - 1-2 Days Prescriptions: Albuterol Sulfate Nebs [Proventil Nebs] 2.5 mg INH Q4H PRN #25 vial PRN Reason: Wheezing Benzonatate Perles [Tessalon Perles] 100 mg PO Q8H PRN #21 cap PRN Reason: Cough Prednisone 50 mg PO DAILY #5 tab Respiratory Therapy Supplies [Nebulizer Air Tube/Plugs] 1 mis XX Q4H PRN #1 mis PRN Reason: Wheezing Home Medications: Ambulatory Orders Cyclobenzaprine HCl [Flexeril] 10 mg PO Q12H PRN 03/30/17 Pantoprazole Sodium [Protonix] 20 mg PO DAILY 03/30/17 Simvastatin 80 mg PO BEDTIME 03/30/17 Lisinopril 10 mg PO DAILY 04/01/17 Pregabalin [Lyrica] 100 mg PO DAILY 04/01/17 Albuterol Sulfate Nebs [Proventil Nebs] 2.5 mg INH Q4H PRN #25 vial 09/01/19 Aspirin [Aspirin Low Strength] 81 mg PO DAILY 09/01/19 Benzonatate Perles [Tessalon Perles] 100 mg PO Q8H PRN #21 cap 09/01/19 Prednisone 50 mg PO DAILY #5 tab 09/01/19 Respiratory Therapy Supplies [Nebulizer Air Tube/Plugs] 1 mis XX Q4H PRN #1 mis 09/01/19 Additional Instructions: Use nebulizer as directed every 4 hours as needed for wheezing. Call your primary care physician as soon as possible to schedule an appointment. Return to the emergency department for significant increased pain, difficulty breathing or any other concerning signs or symptoms.
[2019-09-01 11:34] VITALS: TEMP 98.1
[2019-09-01] MEDS ORDERED: IPRATROPIUM/ALBUTEROL 3 ML VIAL NEB ONE (11:40)
[2019-09-01 12:07] VITALS: O2SAT 96
[2019-09-01] MEDS ORDERED: HYDROcodone 5MG/APAP 325MG 1 EA TAB PO ONE (12:18)
--- NOTE | 2019-09-01 12:26 | RAD ---
EXAM DESCRIPTION: Chest,2 Views CLINICAL HISTORY: cough COMPARISON: Previous study March 30, 2017 TECHNIQUE: PA/lateral FINDINGS: Right lower pleural or extrapleural thickening appears to be a new development compared to previous study. No overlying rib destruction or rib fracture. The cause is indeterminate. If abnormality persists, chest CT might be considered. Heart size is normal with normal pulmonary vascularity. No pleural effusion or pneumothorax. Left lung is clear. Calcified nodes in the right hilar region. Calcified aortic arch. Lateral view shows intact sternum and T-spine. IMPRESSION: Right lower thoracic pleural or extrapleural thickening. Electronically signed by: Anjel Ocasio MD 09/01/2019 12:24 PM CDT
[2019-09-01 19:32] VITALS: BP 118/60
== END 2019-09-01 19:31 | disposition home or self-care (01) ==
LOC: ER 10:42
DX: E87.1 Hypo-osmolality and hyponatremia (principal); S30.1XXA Contusion of abdominal wall, initial encounter; J44.9 Chronic obstructive pulmonary disease, unspecified; I10 Essential (primary) hypertension; I25.2 Old myocardial infarction; E11.9 Type 2 diabetes mellitus without complications; X58.XXXA Exposure to other specified factors, initial encounter; Y92.9 Unspecified place or not applicable; Z87.891 Personal history of nicotine dependence; Z95.5 Presence of coronary angioplasty implant and graft; Z79.899 Other long term (current) drug therapy
CPT/HCPCS: 36415; 71046; 80053; 85025; 85610; 94640; J7620

== ENCOUNTER → 2020-04-13 | Outpatient (CLI) | payer OTHER ==
--- NOTE | 2020-04-14 09:31 | CT ---
Procedure: CT LUNG SCREENING Exam Date: April 13, 2020 Ordering Provider: Em Iglesias Clinical Indication: PERSONAL HISTORY OF TOBACCO USE . Smoking cessation x 5 years. 45 pack years. This patient meets eligibility criteria for low-dose CT lung cancer screening. Comparison: Low-dose CT lung cancer screening examination February 2019. Technique: Using a multislice scanner, sequential helical axial imaging was obtained in the thorax, 2.5 mm thickness, 2.5 mm separation, from the level of the thoracic inlet through the lung bases without IV contrast. A low dose protocol was utilized for BMI less than 30: BMI: 25. CTDI: 1.76 mGy. 120. kVp. 45 mA. DLP 69 mGy-cm. 2D sagittal and coronal reconstructed images, 6.0 mm thickness, were obtained. This exam was performed according to our departmental dose optimization program which includes use of automated exposure control, adjustment of the mA and/or kV according to patient size and/or use of iterative reconstruction technique. Nodule measurements under 10 mm are given as mean value of 3 axes diameters. FINDINGS: Lungs and large airways: Scattered parenchymal blebs in a centrilobular pattern more prevalent in the upper lung blake with no interval change. Stable 3 mm density in the right horizontal fissure. Stable calcified nodule right lower lobe posterior recess subpleural. Stable small calcified nodule abutting the right major fissure the right middle lobe. No change in bilateral perihilar peribronchial wall and mild cuffing. No new nodules and no new mass. No new or focal infiltrates. Pleura and space: Bilateral thickening with no acute process. Mediastinum and farrah: evaluation limited by low dose technique and lack of IV contrast. Small nodes but no dominant soft tissue mass and no interval change from the prior study. Heart and great vessels: Coronary artery calcifications and stents. Calcifications aorta and brachiocephalic vessels stable. Chest wall, lower neck, axillae: Evaluation also limited by same factors as described above. Negative. Upper abdomen: Evaluation limited by low-dose technique. No free air or free fluid in the included peritoneal space. Atherosclerotic calcifications. Atherosclerotic versus renal calcifications with atrophy left renal cortex. Osseous structures: Evaluation limited by low dose MIP technique. Prior surgery right shoulder. No acute bony abnormalities. IMPRESSION: 1. Emphysematous changes in the upper lung blake, and senescent lung changes bilaterally. Stable calcified nodules and perifissural nodule. No new abnormal nodules and no mass. [facility] Best Practice Recommendations: please see below for Lung RADS category and FOLLOW-UP.* *Lung RADS category Category 1 - No nodule or definitely benign nodules (probability of malignancy less than 1%). Follow-up: Continue annual screening with Low Dose Chest CT in 12 months. Electronically signed by: Ender Lawrence MD 04/14/2020 9:29 AM CDT
== END ==
LOC: CT 10:28
PROVIDERS: ATTEND Nurse Practitioner Family
DX: Z12.2 Encounter for screening for malignant neoplasm of respiratory organs (principal); J43.9 Emphysema, unspecified; R91.8 Other nonspecific abnormal finding of lung field; Z87.891 Personal history of nicotine dependence